=== PATIENT | male | born 1950 | race Caucasian/White ===

== ENCOUNTER 2019-05-13 08:32 | Outpatient (CLI) | payer MEDICARE, OTHER ==
--- NOTE | 2019-05-13 09:54 | CT ---
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 COMPARISON: None. TECHNIQUE: Axial CT imaging at 2.5 mm intervals from skull base through lung apices with IV contrast. Coronal an d sagittal reformatted imaging obtained. FINDINGS: There are a few scattered opacified inferior mastoid air cells bilaterally. Imaged paranasal sinuses demonstrate no acute findings. The retroantral fat and the parapharyngeal fat appear clear bilaterally. The parotid glands and submandibular glands appear grossly unremarkable. Streak artifact associated with dental amalgam limits detailed assessment of the oral cavity. No obvi ous mass lesion is noted within the region of the oral cavity or the floor of mouth. The gingiva is not optimally assessed. The tonsillar pillars, the epiglottis and pre-epiglottic fat, the hyoid bone, the thyroid cartilage, and the cricoid cartilage appear unremarkable. Level of the glottis appears unremarkable. There is atherosclerotic calcification of the aortic arch. There is atherosclerotic calcification at the origin of the right subclavian artery and right externa l carotid artery. There is a low density nodule within the thyroid gland on the left measuring 1.7 cm. Follow-up thyroi d ultrasound is recommended. No neck lymphadenopathy is seen. Review of the osseous structures demonstrates prominent degenerative change at the atlantoaxial inter space. Right-sided facet hypertrophy present at C2-3. Disc space narrowing and degenerative endplate change present at C5-6. No worrisome lytic or blastic bone lesion. IMPRESSION: 1. No lymphadenopathy is noted within the neck. 2. There is a low density thyroid nodule on the left for which dedicated thyroid ultrasound is advise d. Transcribed Date/Time: 05/13/2019 10:23 AM
[2019-05-13] MEDS ORDERED: Iopamidol 370 76% 100 ML VIAL ONE (13:35)
== END 2019-05-13 08:33 | disposition home or self-care (01) ==
LOC: CT 08:32
PROVIDERS: ATTEND Otolaryngology Plastic Surgery within the Head & Neck
DX: C03.9 Malignant neoplasm of gum, unspecified (principal); E04.1 Nontoxic single thyroid nodule
CPT/HCPCS: 70491; 82565